=== PATIENT | male | born 1995 | race Two or more races ===

== ENCOUNTER 2019-02-25 21:39 | Emergency (ER) | payer MEDICAID | END 2019-02-25 22:20 | disposition left against medical advice (07) | LOC: ER 21:39 | DX: Z53.21 Procedure and treatment not carried out due to patient leaving prior to being seen by health care provider (principal) ==

== ENCOUNTER 2019-08-27 16:24 | Emergency (ER) | payer SELFPAY ==
[2019-08-27] MEDS ORDERED: DIPH/PERTUSS(ACELL)/TETANUS VAC/PF 0.5 ML SYR (>=10YO) IM ONE (17:03)
--- NOTE | 2019-08-27 17:05 | ER Document Report ---
ED Medical Screen (RME) - General Chief Complaint: Laceration Stated Complaint: FINGER LACERATION Time Seen by Provider: 08/27/19 16:56 Mode of Arrival: Ambulatory Information source: Patient Notes: 24-year-old male presented to ED for laceration to the third and fourth finger on the left hand. There are significant lacerations. He states he was trying to cut his with a knife when he cut these 2 fingers. He is alert oriented respirations regular nonlabored speaking in full sentences. Breathing is under control. His tetanus is not up-to-date so he will be given immunization. He states he smokes maybe 1 cigarette every 2 or 3 months drinks weekly no drugs. He states only medical history is an appendectomy. I have greeted and performed a rapid initial assessment of this patient. A comprehensive ED assessment and evaluation of the patient, analysis of test results and completion of medical decision making process will be conducted by an additional ED providers. - Related Data Allergies/Adverse Reactions: morphine Allergy (Verified 08/27/19 16:54) Hives Past Medical History - Social History Frequency of alcohol use: Social Past Surgical History: Reports: Hx Appendectomy Physical Exam - Vital signs Vitals: Temp Pulse Resp BP Pulse Ox 98.1 F 99 16 129/75 H 99 08/27/19 16:33 08/27/19 16:33 08/27/19 16:33 08/27/19 16:33 08/27/19 16:33 Course - Vital Signs Vital signs: Temp Pulse Resp BP Pulse Ox 98.1 F 99 16 129/75 H 99 08/27/19 16:33 08/27/19 16:33 08/27/19 16:33 08/27/19 16:33 08/27/19 16:33
[2019-08-27] MEDS ORDERED: LIDOCAINE 1% INJ-PF (10 MG/ML) 30 ML SDV INJ ONE (20:13)
--- NOTE | 2019-08-27 20:15 | ER Document Report ---
ED Wound - General Chief Complaint: Laceration Stated Complaint: FINGER LACERATION Time Seen by Provider: 08/27/19 16:56 Mode of Arrival: Ambulatory Notes: Patient is a 24-year-old male comes emergency department for chief complaint laceration to the left third and fourth fingers over the palmar aspect of the left hand. He states that he was trying to cut zip ties with his knife when he accidentally cut himself instead. He is not up-to-date on his tetanus. He denies any other injuries. Only reported past medical history is appendectomy. - Related Data Allergies/Adverse Reactions: morphine Allergy (Verified 08/27/19 16:54) Hives Past Medical History - General Information source: Patient - Social History Smoking Status: Current Some Day Smoker Frequency of alcohol use: Social Lives with: Family Family History: Reviewed & Not Pertinent Past Surgical History: Reports: Hx Appendectomy - Immunizations Hx Diphtheria, Pertussis, Tetanus Vaccination: Yes Review of Systems - Review of Systems Constitutional: No symptoms reported EENT: No symptoms reported Cardiovascular: No symptoms reported Respiratory: No symptoms reported Gastrointestinal: No symptoms reported Genitourinary: No symptoms reported Male Genitourinary: No symptoms reported Musculoskeletal: See HPI Skin: See HPI Hematologic/Lymphatic: No symptoms reported Neurological/Psychological: No symptoms reported Physical Exam - Vital signs Vitals: Temp Pulse Resp BP Pulse Ox 98.1 F 99 16 129/75 H 99 08/27/19 16:33 08/27/19 16:33 08/27/19 16:33 08/27/19 16:33 08/27/19 16:33 - Notes Notes: GENERAL: Alert, interacts well. No acute distress. HEAD: Normocephalic, atraumatic. EYES: Pupils equal, round, and reactive to light. Extraocular movements intact. ENT: Oral mucosa moist, tongue midline. Oropharynx unremarkable. Airway patent. LUNGS: Clear to auscultation bilaterally, no wheezes, rales, or rhonchi. No respiratory distress. Non-tender chest wall. HEART: Regular rate and rhythm. No murmur EXTREMITIES: There are lacerations over the dorsal aspect of the left third and fourth digit. The laceration over the fourth digit is extremely superficial, more of an abrasion, there is no wound that requires repair. The laceration over the middle finger is a flap laceration which is easily explored but is slightly long at almost 3 cm, semicircular. This is very easily explored, there is no evidence of tendon, nerve, or large vessel injury. Patient has full range of motion and strength against flexion and extension resistance, normal cap refill and sensation, normal exam otherwise. Normal hand, wrist, forearm exam. BACK: no cervical, thoracic, lumbar midline tenderness. No saddle anesthesia, normal distal neurovascular exam. Moves all extremities in full range of motion. NEUROLOGICAL: Alert and oriented x3. Normal speech. Cranial nerves II through XII grossly intact. Strength 5/5 in all extremities. PSYCH: Normal affect, normal mood. SKIN: Warm, dry, normal turgor. No rashes or lesions noted. Course - Re-evaluation Re-evalutation: Exam shows lacerations that are easily explored, fourth digit does not require repair, left third digit did require repair but was easily explored with no concerning injuries noted. Discussed wound care, follow-up, return precautions. Patient states understanding and agreement. - Vital Signs Vital signs: Temp Pulse Resp BP Pulse Ox 98.2 F 87 17 127/73 H 100 08/27/19 21:37 08/27/19 21:37 08/27/19 21:37 08/27/19 21:37 08/27/19 21:37 Procedures - Laceration/Wound Repair Left third digit Wound length (cm): 3 Wound's Depth, Shape: Irregular, Flap Laceration pre-procedure: Sterile PPE donned, Sterile drapes applied, Shur-Clens applied Anesthetic type: 1% Lidocaine Volume Anesthetic (mLs): 3 Wound explored: Clean, No foreign body removed Irrigated w/ Saline (mLs): 75 Wound Repaired With: Sutures Suture Size/Type: 5:0, Ethilon Number of Sutures: 11 Layer Closure?: No Post-procedure wound care: Sterile dressing applied Post-procedure NV exam normal: Yes Complications: No Discharge - Discharge Clinical Impression: Finger laceration Qualifiers: Encounter type: initial encounter Finger: middle finger Damage to nail status: without damage Foreign body presence: without foreign body Laterality: left Qualified Code(s): S61.213A - Laceration without foreign body of left middle finger without damage to nail, initial encounter Condition: Stable Disposition: HOME, SELF-CARE Additional Instructions: The wound was repaired with sutures. Keep clean, clean with soap and water, dab dry, avoid soaking or scrubbing. You can apply thin film of topical antibiotic. Sutures need to be removed in about 7 days at a medical facility. Return sooner for any concerning symptoms including signs of infection such as developing pain, swelling, redness, discolored discharge, fever, or any other concerning symptoms. Forms: Return to Work
[2019-08-27 21:38] VITALS: BP 127/73
== END 2019-08-27 21:38 | disposition home or self-care (01) ==
LOC: ER 16:24
DX: S61.213A Laceration without foreign body of left middle finger without damage to nail, initial encounter (principal); S61.215A Laceration without foreign body of left ring finger without damage to nail, initial encounter; W26.0XXA Contact with knife, initial encounter; F17.200 Nicotine dependence, unspecified, uncomplicated; Z23 Encounter for immunization
CPT/HCPCS: 99282; 90471; 90715; 12002; J3490

== ENCOUNTER 2019-09-04 15:25 | Emergency (ER) | payer SELFPAY ==
[2019-09-04 15:35] VITALS: BP 128/76
--- NOTE | 2019-09-04 15:51 | ER Document Report ---
ED Suture/Wound Recheck - General Chief Complaint: Suture Removal Stated Complaint: SUTURE REMOVAL/LEFT MIDDLE FINGER Time Seen by Provider: 09/04/19 15:44 - HPI Notes: 24-year-old male presents emergency room for suture removal to his left third digit with 11 sutures that was placed on August 26 after he accidentally lacerated his skin with trying to cut zip ties. Denies any fevers chills, denies any redness, swelling, drainage around affected area. Sutures have remained intact. Denies any numbness or tingling to his affected fingers. Denies fevers, chills, chest pain,palpitations, shortness of breath, dyspnea, nausea, vomiting, diarrhea, abdominal pain, hematuria,blurred vision, double vision, loss of vision, speech changes, LH, dizziness, syncope, headaches, wheezing, ST, URI, neck pain, weakness, bowel or bladder dysfunction, saddle anesthesia, numbness or tingling in bilateral upper or lower extremities equally, muscle paralysis, weakness in bilateral upper or lower extremities equally or rash. Denies IV drug use. MEDICATIONS: I agree with the patient medications as charted by the RN. ALLERGIES: I agree with the allergies as charted by the RN. PAST MEDICAL HISTORY/PAST SURGICAL HISTORY: Reviewed and agree as charted by RN. SOCIAL HISTORY: Reviewed and agree as charted by RN. FAMILY HISTORY: No significant familial comorbid conditions directly related to patient complaint EXAM: Reviewed vital signs as charted by RN. REVIEW OF SYSTEMS:reviewed vital signs by RN CONSTITUTIONAL : Denies fever, chills, or sweats. Denies recent illness. EENT: Denies eye, ear, throat, or mouth pain or symptoms. Denies nasal or sinus congestion or discharge. Denies throat, tongue, or mouth swelling or difficulty swallowing. CARDIOVASCULAR: Denies chest pain. Denies palpitations or racing or irregular heart beat. Denies ankle edema. RESPIRATORY: Denies cough, cold, or chest congestion. Denies shortness of breath, difficulty breathing, or wheezing. GASTROINTESTINAL: Denies abdominal pain or distention. Denies nausea, vomiting, or diarrhea. Denies blood in vomitus, stools, or per rectum. Denies black, tarry stools. Denies constipation. GENITOURINARY: Denies difficulty urinating, painful urination, burning, frequency, blood in urine, or discharge. MUSCULOSKELETAL: Denies back or neck pain or stiffness. Denies joint pain or swelling. SKIN: Denies rash, lesions or sores. HEMATOLOGIC : Denies easy bruising or bleeding. LYMPHATIC: Denies swollen, enlarged glands. NEUROLOGICAL: Denies confusion or altered mental status. Denies passing out or loss of consciousness. Denies dizziness or lightheadedness. Denies headache. Denies weakness or paralysis or loss of use of either side. Denies problems with gait or speech. Denies sensory loss, numbness, or tingling. Denies seizures. PSYCHIATRIC: Denies anxiety or stress. Denies depression, suicidal ideation, or homicidal ideation. ALL OTHER SYSTEMS REVIEWED AND NEGATIVE. Dictation was performed using [employer] voice recognition software PHYSICAL EXAMINATION: GENERAL: Well-appearing, well-nourished and in no acute distress. HEAD: Atraumatic, normocephalic. EYES: Pupils equal round and reactive to light, extraocular movements intact, sclera anicteric, conjunctiva are normal. ENT: Nares patent, oropharynx clear without exudates. Moist mucous membranes. NECK: Normal range of motion, supple without lymphadenopathy LUNGS: Breath sounds clear to auscultation bilaterally and equal. No wheezes rales or rhonchi. HEART: Regular rate and rhythm without murmurs ABDOMEN: Soft, nontender, nondistended abdomen. No guarding, no rebound. No masses appreciated. Musculoskeletal: Normal range of motion, no pitting or edema. No cyanosis. NEUROLOGICAL: Cranial nerves grossly intact. Normal speech, normal gait. Normal sensory, motor exams PSYCH: Normal mood, normal affect. SKIN: Warm, Dry, normal turgor, no rashes or lesions noted. 11 sutures to volar aspect of left third digit at distal phalange in a U-shape. Cap refill less than 3 seconds. [employer] App[employer]ice + 2 BUE equally. radial pulses + 2 BUE equally. Negative kanavels sign. No open wounds or drainage from wrist. No vascular compromise.No body crepitus or focal area of TTP. no pain with opposition, flexion, extension, abduction and adduction on of left fingers . Motor and sensory function of ulnar, radial, medial nerves intact bilaterally and equally. strength 5/5 in BUE equally. - Related Data Allergies/Adverse Reactions: morphine Allergy (Verified 09/04/19 15:32) Hives Past Medical History - General Information source: Patient - Social History Smoking Status: Unknown if Ever Smoked Family History: Reviewed & Not Pertinent Past Surgical History: Reports: Hx Appendectomy - Immunizations Hx Diphtheria, Pertussis, Tetanus Vaccination: Yes Physical Exam - Vital signs Vitals: Temp Pulse Resp BP Pulse Ox 98.5 F 81 16 128/76 H 96 09/04/19 15:33 09/04/19 15:33 09/04/19 15:09/04/19 15:09/04/19 15:33 Course - Re-evaluation Re-evalutation: 09/04/19 16:00 AFebrile vital stable no distress. Nurses notes reviewed. Please see nurses notes for suture removal. Patient tolerated suture removal without any distress. Advised to follow-up with primary care provider as noted. Monitor for any signs symptoms of infection such as redness, swelling, drainage. After performing a Medical Screening Examination, I estimate there is LOW risk for OPEN FRACTURE, COMPARTMENT SYNDROME, TENDON RUPTURE, ACUTE NEUROVASCULAR INJURY, or RETAINED FOREIGN BODY, thus I consider the discharge disposition reasonable. Also, there is no evidence or peritonitis, sepsis, or toxicity. I have reevaluated this patient multiple times and no significant life threatening changes are noted. The patient and I have discussed the diagnosis and risks, and we agree with discharging home with close follow-up with the understanding that symptoms and presentations can change. We also discussed returning to the Emergency Department immediately if new or worsening symptoms occur. We have discussed the symptoms which are most concerning (e.g., changing or worsening pain, fever, numbness, weakness, cool or painful digits) that necessitate immediate return. - Vital Signs Vital signs: Temp Pulse Resp BP Pulse Ox 98.5 F 81 16 128/76 H 96 09/04/19 15:33 09/04/19 15:33 09/04/19 15:33 09/04/19 15:33 09/04/19 15:33 Discharge - Discharge Clinical Impression: Visit for suture removal Condition: Stable Disposition: HOME, SELF-CARE Instructions: Suture Removal Additional Instructions: Your sutures removed today. Please monitor for any signs and symptoms of infection such as redness, swelling, drainage. Apply triple antibiotic ointment that is [id number] to area as needed. Wash with soap and water at least twice a day or when dirty. Return immediately for any new or worsening symptoms. Follow up with primary care provider, call tomorrow to make followup appointment. Referrals: RICHELLE PANG MD [ACTIVE STAFF] - Follow up as needed
== END 2019-09-04 15:58 | disposition home or self-care (01) ==
LOC: ER 15:25
DX: S61.213D Laceration without foreign body of left middle finger without damage to nail, subsequent encounter (principal); W26.0XXD Contact with knife, subsequent encounter